=== PATIENT | male | born 1985 | race African-American/Black ===

== ENCOUNTER 2017-11-21 11:52 | Emergency (ER) | payer BC ==
[~2017-11-21] VITALS: Ht 167.6 cm; Wt 95.5 kg
[~2017-11-21 11:52] MED LIST: AUGMENTIN875TAB PO; BACTRIM DS1 TAB OR; BACTRIM DS1 TAB PO; ERY-TAB333 MG OR; KEFLEX500 M1 PO; LISINOPRIL10 MG PO; LORTAB 10-325 M1 TAB PO; NAPROSYN500 MG PO; NASACORT AQ55 MCG/AC; NO HOME MEDS; NYQUI1 OR; PREDNISONE20 MG OR; ULTRAM50 MG OR; VENTOLIN HFA IN
[2017-11-21] MEDS ORDERED: CYCLOBENZAPRINE5 MG PO (13:21)
[2017-11-21] MEDS ORDERED: MOTRIN400 MG PO (13:21)
[2017-11-21 13:35] VITALS: BP 131/91
== END 2017-11-21 13:41 | disposition home or self-care (01) | DRG 552 ==
LOC: ED 11:52
DX: M62.830 Muscle spasm of back (principal); I10 Essential (primary) hypertension; F17.200 Nicotine dependence, unspecified, uncomplicated

== ENCOUNTER 2019-11-26 15:57 | Emergency (ER) | payer BC ==
[~2019-11-26] VITALS: Ht 320 cm; Wt 106.8 kg
[~2019-11-26 15:57] MED LIST changes: +CYCLOBENZAPRINE5 MG PO; +MOTRIN400 MG PO
[2019-11-26 17:07] LABS: URINE BILIRUBIN - DIPSTICK NEGATIVE (NEGATIVE); URINE BLOOD DIPSTICK NEGATIVE (NEGATIVE); URINE COLOR YELLOW; URINE GLUCOSE - DIPSTICK NEGATIVE (NEGATIVE); URINE KETONE TRACE mg/dL (NEGATIVE); URINE LEUK ESTERASE NEGATIVE (NEGATIVE); URINE NITRITE - DIPSTICK NEGATIVE (Negative); URINE PH 6.5 (4.5-8.0); URINE PROTEIN - DIPSTICK NEGATIVE (NEG-TRACE); URINE SPECIFIC GRAVITY 1.025
[2019-11-26 17:08] LABS: HEMATOCRIT 48.1 % (39.0-50.0); HEMOGLOBIN 15.9 g/dl (14.0-18.0); IMMATURE GRANULOCYTES 0.3 % (0.0-5.0); MEAN CORPUSCULAR HGB 29.9 pG CALC (26.0-32.0); MEAN CORPUSCULAR HGB CONC 33.1 g/dL CAL (32.0-36.0); NEUT# 4.29 thou/uL (1.82-7.42); RED BLOOD COUNT 5.31 mill/uL (4.70-6.10); RED CELL DISTRI WIDTH 12.4 % (11.5-15.5)
[2019-11-26 17:13] LABS: MEAN CELL VOLUME 90.6 fL CALC (80.0-100.0)
[2019-11-26 17:19] LABS: ALBUMIN 4.4 g/dL (3.2-5.0); ALKALINE PHOSPHATASE 95 u/l (38-126); ANION GAP 13 (6-22 (CALC)); BUN 18 mg/dL (9-20); BUN/CREATININE RATIO 18 (12-20 (CALC)); CARBON DIOXIDE 22 mmol/l (22-30); CHLORIDE 106 mmol/l (95-108); GFR > 60 ML/MIN (>=60 (CALC)); GFR FOR AFR.AMER. > 60 ML/MIN (>=60 (CALC)); POTASSIUM 4.1 mmol/l (3.5-5.1); SGOT/AST 31 u/l (17-59); SODIUM 137 mmol/l (137-146); TOTAL PROTEIN 7.4 g/dL (6.3-8.2)
[2019-11-26] MEDS ORDERED: PEPCID20 MG PO (17:51)
[2019-11-26] MEDS ORDERED: LISINOPRIL10 MG PO (17:51)
[2019-11-26 18:14] VITALS: BP 148/78
== END 2019-11-26 18:14 | disposition home or self-care (01) | DRG 305 ==
LOC: ED 15:57
DX: I10 Essential (primary) hypertension (principal); B35.3 Tinea pedis; R12 Heartburn; F17.200 Nicotine dependence, unspecified, uncomplicated